=== PATIENT | male | born 1960 | race Caucasian/White ===

== ENCOUNTER 2018-04-05 05:16 | Day surgery (SDC) | payer BC ==
[2018-03-28 13:26] LABS: BASOPHILS % (AUTO) 0.4 % (0-1); EOSINOPHILS # (AUTO) 0.2 X10'3 (0-0.9); EOSINOPHILS % (AUTO) 2.5 % (0-6); LYMPHOCYTES # (AUTO) 2.4 X10'3 (1.1-4.8); LYMPHOCYTES % (AUTO) 26.1 % (21-51); MEAN CORPUSCULAR HEMOGLOBIN 31.8 PG (27.0-31.0); MEAN PLATELET VOLUME 7.3 FL (7.4-10.4); MONOCYTES # (AUTO) 0.8 X10'3 (0-0.9); MONOCYTES % (AUTO) 8.6 % (2-12); NEUTROPHILS # (AUTO) 5.8 X10'3 (1.8-7.7); NEUTROPHILS % (AUTO) 62.4 % (42-75); PRE OP HEMATOCRIT 41.5 % (42.0-52.0); PRE OP HEMOGLOBIN 14.5 g/dL (14.0-17.9); PRE OP PLATELET COUNT 349 X10'3 (140-440); RED BLOOD COUNT 4.56 X10'6 (4.70-6.10); RED CELL DISTRIBUTION WIDTH 12.9 % (11.5-14.5)
[2018-03-28 13:34] LABS: PRE OP PROTIME 10.1 SECONDS (9.0-12.0)
[2018-03-28 13:37] LABS: ALBUMIN 3.8 G/DL (3.4-5.0); ALBUMIN/GLOBULIN RATIO 1.1 (1.1-1.5); ALKALINE PHOSPHATASE 80 IU/L (46-116); BLOOD UREA NITROGEN 17 MG/DL (7-18); CALCIUM 8.4 MG/DL (8.5-10.1); CHLORIDE 105 MMOL/L (99-107); CREATININE 1.06 MG/DL (0.60-1.10); PRE OP ALT 55 U/L (30-65); PRE OP ANION GAP 10 (8-16); PRE OP AST 25 U/L (10-37); PRE OP BILIRUB, TOTAL 0.3 MG/DL (0.0-1.0); PRE OP GLUCOSE 115 MG/DL (70-104); PRE OP POTASSIUM 4.2 MMOL/L (3.4-5.1); PRE OP SODIUM 142 MMOL/L (135-145); TOTAL CARBON DIOXIDE 26.8 MMOL/L (24-32); TOTAL PROTEIN 7.4 G/DL (6.4-8.2); eGFR 73 ML/MIN
[~2018-04-05] VITALS: Ht 185.4 cm; Wt 143.8 kg
[2018-04-05] VITALS (9 sets, daily range): BP systolic 125–152; BP diastolic 77–100
[~2018-04-05 05:16] MED LIST: LOSA50TA3 PO; PARO40TA4 PO; PRAV40TA3 PO; VERA360C2 PO; ringers solution, lacted 1,000 ML IV SCH
[2018-04-05] MEDS ORDERED: famotidine 20mg tablet PO ONE (05:30)
[2018-04-05] MEDS ORDERED: cefazolin/dext.iso 2gm/100 ML IV ONE (05:30)
[2018-04-05] MEDS ORDERED: VANCOMYCIN INJ 1000 MG in NORMAL SALINE 250ml IV.SOLN IV ONE (05:30)
[2018-04-05] MEDS ORDERED: LIDOcaine 1% (10mg/ml) 2ml vial ONE (05:37)
[2018-04-05] MEDS ORDERED: fentaNYL /PF 50mcg/ml 5ml ampule ONE (07:14)
[2018-04-05] MEDS ORDERED: midazolam 2 mg/2 ml injection ONE (07:14)
[2018-04-05] MEDS ORDERED: LIDOcaine 2% (20mg/ml) 5ml vial ONE (07:17)
[2018-04-05] MEDS ORDERED: propofol inj 20 ML IV ONE (07:17)
[2018-04-05] MEDS ORDERED: sevoflurane 250ml liquid IH ONE (07:42)
[2018-04-05] MEDS ORDERED: dexamethasone sod phosphate 4mg/ml inj. ONE (07:57)
[2018-04-05] MEDS ORDERED: ringers solution, lacted 1,000 ML IV SCH (08:23)
[2018-04-05] MEDS ORDERED: BUPIVAcaine/PF 2.5mg/ml (0.25%) 10ml vial ONE (08:24)
[2018-04-05] MEDS ORDERED: triamcinolone acetonide 40mg/ml inj ONE (08:24)
[2018-04-05] MEDS ORDERED: meperidine/PF 25mg/ml syringe IV PRN ×3 (08:25)
[2018-04-05] MEDS ORDERED: morphine 4 MG/ML inj SYRINge IV PRN ×2 (08:25)
[2018-04-05] MEDS ORDERED: proCHLORperazine 10 MG/2 ml inj IV PRN (08:25)
[2018-04-05] MEDS ORDERED: ondansetron/PF 4mg/2ml inj IV PRN (08:25)
[2018-04-05] MEDS ORDERED: ondansetron/PF 4mg/2ml inj ONE (08:27)
== END 2018-04-05 09:56 | disposition home or self-care (01) ==
LOC: PAS 05:16
PROVIDERS: ATTEND Orthopaedic Surgery
DX: M23.221 Derangement of posterior horn of medial meniscus due to old tear or injury, right knee (principal); M23.261 Derangement of other lateral meniscus due to old tear or injury, right knee; M22.41 Chondromalacia patellae, right knee; M25.861 Other specified joint disorders, right knee; F32.89 Other specified depressive episodes; E78.5 Hyperlipidemia, unspecified; I10 Essential (primary) hypertension; G89.29 Other chronic pain; E66.01 Morbid (severe) obesity due to excess calories; M23.51 Chronic instability of knee, right knee; M17.12 Unilateral primary osteoarthritis, left knee; Z90.89 Acquired absence of other organs; Z79.01 Long term (current) use of anticoagulants; Z86.11 Personal history of tuberculosis; Z79.1 Long term (current) use of non-steroidal anti-inflammatories (NSAID); Z68.41 Body mass index [BMI] 40.0-44.9, adult; Z79.899 Other long term (current) drug therapy; Z80.9 Family history of malignant neoplasm, unspecified
CPT/HCPCS: 29873; 29879; 29880; 36415; 80053; 85025; 85610; 85730; 93005; A6449; J0690; J1100; J2001; J2250; J2405; J2704; J3010; J3301; J3370; J3490; J7030; J7120; A6250; A7000